=== PATIENT | female | born 1950 | race Two or more races ===

== ENCOUNTER 2024-05-14 13:18 | Inpatient (IN) | payer OTHER ==
[~2024-05-14] VITALS: Ht 167.6 cm; Wt 68.5 kg
[2024-05-14 13:54] LABS: Basophils # (auto) 0 10 ^3/uL (0-0.2); Basophils % (auto) 0.7 % (0.0-2.0); Eosinophils # (auto) 0 10 ^3/uL (0-0.8); Eosinophils % (auto) 0.7 % (0.0-7.0); Hematocrit 41.9 % (36.0-46.0); Hemoglobin 14.2 g/dL (12.2-16.2); Lymphocytes # (auto) 0.9 10 ^3/uL (0.4-5.4); Lymphocytes % (auto) 20.8 % (10.0-50.0); Mean Corpuscular Hemoglobin 32.3 pg (28.0-32.0); Monocytes # (auto) 0.2 10 ^3/uL (0-1.3); Monocytes % (auto) 5.9 % (0.0-12.0); Neutrophils % (auto) 71.9 % (37.0-80.0); Nucleated Red Blood Cells % 0.1 %; Platelet Count (auto) 170 10^3/uL (140-450); Red Blood Cells 4.41 10^6/uL (4.0-5.20); Red Cell Distribution Width 14.2 % (11.8-14.3); White Blood Cell 4.1 10^3/uL (4.4-10.8)
[2024-05-14 14:13] LABS: Alanine Aminotransferase 15 U/L (7-40); Albumin 4.1 g/dL (3.2-4.8); Alkaline Phosphatase 80 U/L (46-116); Anion Gap 5 (5-15); Aspartate Aminotransferase 12 U/L (13-40); BUN/Creatinine Ratio 12.2 (10.0-20.0); Blood Urea Nitrogen 17 mg/dL (9-23); Calcium 9.6 mg/dL (8.7-10.4); Carbon Dioxide 26 mmol/L (20-31); Chloride 109 mmol/L (98-107); Glucose 136 mg/dL (74-106); Potassium 4.1 mmol/L (3.5-5.1); Sodium 140 mmol/L (136-145)
[2024-05-14 14:14] LABS: Bilirubin, Total 0.5 mg/dL (0.2-1.0)
[2024-05-14] MEDS: dilTIAZem 25 MG/5 ML VIAL IV ONE (16:45)
[2024-05-14 18:41] VITALS: PULSE 60; RESP 18; O2SAT 94
[2024-05-14] MEDS: ONDANSETRON HCL 4 MG/2 ML VIAL IV ONE ×2 (18:58→23:28)
[2024-05-14] MEDS: MORPHINE SULFATE 4 MG/ML SYR/VIAL IV ONE ×2 (18:59→23:28)
[2024-05-14 20:00] VITALS: PULSE 57; RESP 17; O2SAT 96
[2024-05-14 23:11] LABS: Urine Bacteria None Seen /hpf (None Seen)
[2024-05-14] MEDS ORDERED: NITROGLYCERIN 0.4 MG SL TAB SL PRN (23:15)
[2024-05-14] MEDS ORDERED: MORPHINE SULFATE INJ 2 MG/ml SYRG IV PRN (23:15)
[2024-05-14 23:20] LABS: Urine Blood Negative /uL (Negative); Urine Clarity Turbid (Clear); Urine Color Yellow (Yellow); Urine Mucus FEW (None Seen); Urine Protein, UAD Negative (Negative); Urine Specific Gravity 1.017 (1.001-1.035); Urine Urobilinogen Normal (Negative); Urine WBC 28 /hpf (0 - 5); Urine pH 5.5 (5.0-9.0)
[2024-05-15] VITALS (9 sets, daily range): BP systolic 120–150; BP diastolic 52–68; PULSE 33–72; RESP 17–19; TEMP 98–98.8; O2SAT 91–94
[2024-05-15] MEDS: MORPHINE SULFATE INJ 2 MG/ml SYRG IV PRN (04:36)
[2024-05-15] MEDS: SODIUM CHLOR 0.9% PF (SALINE LOCK) 10ML VIAL/SYR IV SCH (05:29)
[2024-05-15] MEDS: LEVOTHYROXINE SODIUM 100 MCG TAB PO SCH (05:29)
[2024-05-15] MEDS ORDERED: MORP30TA PO (08:33)
[2024-05-15] MEDS ORDERED: ATOR10TA52 PO (08:33)
[2024-05-15] MEDS ORDERED: BUPR150T18 PO (08:33)
[2024-05-15] MEDS ORDERED: DIPH-751 PO (08:33)
[2024-05-15] MEDS ORDERED: IBUP-1455 PO (08:33)
[2024-05-15] MEDS ORDERED: AMLO1TAB22 PO (08:33)
[2024-05-15] MEDS ORDERED: GABA-1250 PO (08:33)
[2024-05-15] MEDS ORDERED: LEVO100T8 PO (08:33)
[2024-05-15] MEDS ORDERED: SODI650T PO (08:33)
[2024-05-15] MEDS ORDERED: NALO4SPR3 NAS (08:33)
[2024-05-15] MEDS ORDERED: APIX5TAB PO (08:33)
[2024-05-15] MEDS: APIXABAN 5 MG TAB PO SCH (09:21)
[2024-05-15] MEDS: amLODIPine BESYLATE 5 MG TAB PO SCH (09:23)
[2024-05-15 09:25] LABS: Basophils # (auto) 0 10 ^3/uL (0-0.2); Basophils % (auto) 0.7 % (0.0-2.0); Eosinophils # (auto) 0.1 10 ^3/uL (0-0.8); Eosinophils % (auto) 1.7 % (0.0-7.0); Hematocrit 41.3 % (36.0-46.0); Hemoglobin 13.9 g/dL (12.2-16.2); Lymphocytes # (auto) 1.1 10 ^3/uL (0.4-5.4); Lymphocytes % (auto) 25.6 % (10.0-50.0); Mean Corpuscular Hemoglobin 32.1 pg (28.0-32.0); Mean Corpuscular Hgb Conc. 33.6 g/dL (32.0-36.0); Mean Corpuscular Volume 95.5 fL (80.0-100.0); Monocytes # (auto) 0.3 10 ^3/uL (0-1.3); Neutrophils # (auto) 2.7 10 ^3/uL (1.6-8.6); Nucleated Red Blood Cells % 0.1 %; Platelet Count (auto) 170 10^3/uL (140-450); Red Blood Cells 4.32 10^6/uL (4.0-5.20); Red Cell Distribution Width 14.4 % (11.8-14.3); White Blood Cell 4.2 10^3/uL (4.4-10.8)
[2024-05-15 09:46] LABS: Magnesium 2.1 mg/dL (1.6-2.6)
[2024-05-15 09:49] LABS: Alanine Aminotransferase 14 U/L (7-40); Albumin 3.7 g/dL (3.2-4.8); Alkaline Phosphatase 73 U/L (46-116); Anion Gap 3 (5-15); Aspartate Aminotransferase 13 U/L (13-40); BUN/Creatinine Ratio 9.3 (10.0-20.0); Blood Urea Nitrogen 14 mg/dL (9-23); Calcium 9.6 mg/dL (8.7-10.4); Carbon Dioxide 29 mmol/L (20-31); Chloride 110 mmol/L (98-107); Glucose 93 mg/dL (74-106); Potassium 5.5 mmol/L (3.5-5.1); Sodium 142 mmol/L (136-145)
[2024-05-15 09:50] LABS: Bilirubin, Total 0.8 mg/dL (0.2-1.0)
[2024-05-15] MEDS: METOPROLOL TARTRATE 25 MG TAB PO SCH (10:00)
[2024-05-15] MEDS: NICOTINE 14 MG/24HR TOPICAL PATCH TD SCH (10:24)
[2024-05-15 10:48] LABS: Amphetamine Screen, Urine Neg (NEGATIVE)
[2024-05-15 10:50] LABS: Barbiturate Scree,Urine Neg (NEGATIVE); Benzodiazephine Screen, Urine Neg (NEGATIVE); Cannabinoid Screen, Urine Neg (NEGATIVE); Cocaine Screen, Urine Neg (NEGATIVE); Opiate Scree,Urine Pos (NEGATIVE); Phencyclidine Screen, Urine Neg (NEGATIVE)
[2024-05-15] MEDS: HYDROcodone-ACET 5/325MG TAB PO PRN (11:56)
[2024-05-15] MEDS: LACTATED RINGER'S 1,000 ML IV SCH (18:00)
[2024-05-15] MEDS: ATORVASTATIN 20 MG TAB PO SCH (20:59)
[2024-05-15] MEDS: MELATONIN 5 MG TAB PO ONE (22:18)
[2024-05-16] VITALS (8 sets, daily range): BP systolic 131–170; BP diastolic 60–88; PULSE 44–69; RESP 16–19; TEMP 98–98.7; O2SAT 93–96
[2024-05-16 07:04] LABS: Chloride 112 mmol/L (98-107); Sodium 144 mmol/L (136-145)
[2024-05-16 07:05] LABS: Anion Gap 4 (5-15); Calcium 9.6 mg/dL (8.7-10.4); Carbon Dioxide 28 mmol/L (20-31)
[2024-05-16 07:10] LABS: Blood Urea Nitrogen 12 mg/dL (9-23); Glucose 107 mg/dL (74-106)
[2024-05-16] MEDS: oxyCODONE HCL 5MG TAB PO SCH (08:13)
[2024-05-16] MEDS: buPROPion HCL 75 MG TAB PO SCH (09:56)
[2024-05-16] MEDS: ONDANSETRON HCL 4 MG/2 ML VIAL IV PRN (13:00)
[2024-05-16] MEDS: hydrALAZINE HCL 20 MG/ML VL IV PRN (13:00)
[2024-05-16] MEDS: ACETAMINOPHEN 325 MG TAB PO PRN (15:00)
[2024-05-16] MEDS ORDERED: MET25T PO (15:56)
[2024-05-16] MEDS ORDERED: APIX5TAB PO (16:07)
[2024-05-16] MEDS: MELATONIN 5 MG TAB PO SCH (22:16)
[2024-05-17] MEDS: diphenhdrAMINE HCL 25 MG CAP PO PRN (00:42)
[2024-05-17 05:00] VITALS: BP 144/64; PULSE 62; RESP 18; TEMP 98.8; O2SAT 94
[2024-05-17 06:14] LABS: Basophils # (auto) 0 10 ^3/uL (0-0.2); Basophils % (auto) 0.7 % (0.0-2.0); Eosinophils # (auto) 0 10 ^3/uL (0-0.8); Eosinophils % (auto) 0.8 % (0.0-7.0); Hematocrit 40.1 % (36.0-46.0); Hemoglobin 13.9 g/dL (12.2-16.2); Lymphocytes # (auto) 1.4 10 ^3/uL (0.4-5.4); Lymphocytes % (auto) 23.8 % (10.0-50.0); Mean Corpuscular Hemoglobin 32.8 pg (28.0-32.0); Mean Corpuscular Hgb Conc. 34.6 g/dL (32.0-36.0); Mean Corpuscular Volume 94.8 fL (80.0-100.0); Monocytes # (auto) 0.5 10 ^3/uL (0-1.3); Monocytes % (auto) 7.7 % (0.0-12.0); Nucleated Red Blood Cells % 0.1 %; Platelet Count (auto) 170 10^3/uL (140-450); Red Blood Cells 4.23 10^6/uL (4.0-5.20); Red Cell Distribution Width 14.4 % (11.8-14.3); White Blood Cell 5.9 10^3/uL (4.4-10.8)
[2024-05-17 08:00] VITALS: PULSE 54; O2SAT 95
[2024-05-17 09:00] VITALS: BP 154/60; PULSE 69; RESP 16; TEMP 98.1; O2SAT 96
[2024-05-17] MEDS: DOCUSATE SOD 100 MG CAP PO PRN (12:35)
[2024-05-17 13:00] VITALS: BP 136/59; PULSE 60; RESP 16; TEMP 98.5; O2SAT 94
[2024-05-17 13:36] VITALS: BP 121/76; PULSE 60; RESP 16
[2024-05-17] MEDS ORDERED: METO25TA36 PO (16:50)
[2024-05-17] MEDS ORDERED: MELATONIN 5 MG TAB PO SCH (22:00)
== END 2024-05-17 17:30 | disposition home or self-care (01) | DRG 309 ==
LOC: ER 13:18 → EDBD 13:18 → TELE 23:13 → TELE-EAST 23:13
PROVIDERS: ADMIT Nurse Practitioner Family; ATTEND Student in an Organized Health Care Education/Training Program
DX: I48.20 Chronic atrial fibrillation, unspecified (principal); N17.9 Acute kidney failure, unspecified; R07.9 Chest pain, unspecified; E78.5 Hyperlipidemia, unspecified; I12.9 Hypertensive chronic kidney disease with stage 1 through stage 4 chronic kidney disease, or unspecified chronic kidney disease; Z96.612 Presence of left artificial shoulder joint; Z96.611 Presence of right artificial shoulder joint; F17.210 Nicotine dependence, cigarettes, uncomplicated; G89.29 Other chronic pain; Z96.651 Presence of right artificial knee joint; G62.9 Polyneuropathy, unspecified; E87.5 Hyperkalemia; N18.32 Chronic kidney disease, stage 3b; Z90.49 Acquired absence of other specified parts of digestive tract; Z90.5 Acquired absence of kidney; Z86.718 Personal history of other venous thrombosis and embolism; Z90.710 Acquired absence of both cervix and uterus; Z87.442 Personal history of urinary calculi; R06.03 Acute respiratory distress
CPT/HCPCS: 36415; 71045; 80048; 80053; 80061; 80307; 81001; 83036; 83735; 84443; 84484; 85025; 93005; 93306; G0378; J2405